=== PATIENT | female | born 1940 | race Caucasian/White ===

== ENCOUNTER 2024-12-13 09:11 | Emergency (ER) | payer MEDICARE, OTHER ==
[~2024-12-13] VITALS: Ht 165.1 cm; Wt 97.7 kg
[2024-12-13] MEDS ORDERED: CENTCHW4 PO (09:22)
[2024-12-13] MEDS ORDERED: VITA100093 PO (09:22)
[2024-12-13] MEDS: ACETAMINOPHEN 500 MG TAB PO ONE (12:17)
[2024-12-13] MEDS: LIDOCAINE 5% PATCH TD ONE (12:17)
[2024-12-13] MEDS ORDERED: LIDO1ADH93 TOP (14:07)
[2024-12-13] MEDS ORDERED: TIZA4CAP PO (14:07)
[2024-12-13] MEDS ORDERED: METH4PACK PO (14:08)
[2024-12-13] MEDS: ONDANSETRON 4MG ORAL DISINTEGRATING TAB PO ONE (14:17)
[2024-12-13 14:32] VITALS: BP 120/70; TEMP 97.1
[2024-12-13 14:37] VITALS: O2SAT 99
== END 2024-12-13 14:46 | disposition home or self-care (01) ==
LOC: M ED 09:11
DX: M51.362 Other intervertebral disc degeneration, lumbar region with discogenic back pain and lower extremity pain (principal); Z85.038 Personal history of other malignant neoplasm of large intestine; Z90.49 Acquired absence of other specified parts of digestive tract; Z85.828 Personal history of other malignant neoplasm of skin; Z88.5 Allergy status to narcotic agent; Z88.1 Allergy status to other antibiotic agents
CPT/HCPCS: 72131; 96372; 99284; J2919